=== PATIENT | male | born 1950 | race Caucasian/White ===

== ENCOUNTER 2020-05-14 19:48 | Inpatient (IN) | payer MEDICARE, OTHER ==
[~2020-05-14] VITALS: Ht 188 cm; Wt 109.6 kg
[2020-05-14] MEDS ORDERED: SODIUM CHLORIDE 0.9% 1,000 ML IV ONE (20:45)
[2020-05-14] MEDS ORDERED: PANTOPRAZOLE 40 MG/10 ML VIAL INJ IV ONE (20:45)
[2020-05-14 21:27] LABS: Hemoglobin 16.3 g/dL (13.5-17.5); Mean Corpuscular Hgb Conc. 34.7 g/dL (32.0-36.0); Mean Corpuscular Volume 97.8 fL (80.0-100.0); Red Cell Distribution Width 15.6 % (11.8-14.3)
[2020-05-14 21:31] LABS: Basophils % (manual) 0 (0.0-2.0); Blast Cells 0; Eosinophils % (manual) 0 (0-7); Metamyelocytes % 0; Promyelocytes % 0; Reactive Lymphocytes 0
[2020-05-14 21:32] LABS: INR 1.11 (0.9-1.15)
[2020-05-14 21:36] LABS: Albumin 1.7 g/dL (3.4-5.0); Potassium 3.6 mmol/L (3.5-5.1)
[2020-05-14 21:39] LABS: BUN/Creatinine Ratio 32.4; Total Protein 6.8 g/dL (6.4-8.2)
[2020-05-14 21:49] LABS: Lipase 187 U/L (73-393); Magnesium 2.9 mg/dL (1.6-2.6)
[2020-05-14 21:52] LABS: Band Neutrophils % (manual) 44; Lymphocytes % (manual) 3 (10.0-50.0); Monocytes % (manual) 3 (0-12); Myelocytes % 2
[2020-05-14] MEDS ORDERED: ONDANSETRON HCL 4 MG/2 ML VIAL IV ONE (22:00)
[2020-05-14] MEDS ORDERED: fentaNYL CITRATE 100 MCG/2 ML VL IV ONE (22:00)
[2020-05-14] MEDS ORDERED: PIPERACILLIN-TAZOB 3.375GM 100 ML IV ONE (22:30)
[2020-05-15] VITALS (28 sets, daily range): BP systolic 68–108; BP diastolic 34–74
[2020-05-15] MEDS ORDERED: POTASSIUM CHLORIDE 20 MEQ in D5W/SOD CHL 0.45% 1,000 ML IV ONE ×2
[2020-05-15] MEDS ORDERED: LIDOCAINE VISCOUS 2% 15ML UD PO ONE (00:15)
[2020-05-15] MEDS ORDERED: ONDANSETRON HCL 4 MG/2 ML VIAL IV PRN ×2 (00:45→17:00)
[2020-05-15] MEDS ORDERED: MORPHINE SULFATE 4 MG/ML SYR/VIAL IV PRN (00:45)
[2020-05-15] MEDS ORDERED: NITROGLYCERIN 0.4 MG SL TAB SL PRN (00:45)
[2020-05-15] MEDS ORDERED: MORPHINE SULFATE INJECTION 2 MG/ML SYRG IV PRN (00:45)
[2020-05-15] MEDS ORDERED: D5W/SOD CHL 0.45%/KCL 20MEQ 1,000 ML IV ONE (01:00)
[2020-05-15] MEDS: D5W/SOD CHL 0.45%/KCL 20MEQ 1,000 ML IV SCH ×2 (01:24→11:55)
[2020-05-15] MEDS: metroNIDAZOLE 500MG/100ML 100 ML IV SCH ×3 (01:24→23:43)
[2020-05-15] MEDS: PANTOPRAZOLE 40 MG/10 ML VIAL INJ IV SCH ×3 (01:25→23:43)
[2020-05-15 04:02] LABS: Urine Amorphous Crystal FEW /hpf (None Seen); Urine Bacteria FEW /hpf (None Seen); Urine Blood Negative /uL (Negative); Urine Hyaline Cast FEW /lpf (0 - 2); Urine Specific Gravity 1.017 (1.001-1.035); Urine WBC 16 /hpf (0 - 3)
[2020-05-15] MEDS: PIPERACILLIN-TAZOB 3.375GM 100 ML IV SCH ×4 (06:31→18:13)
[2020-05-15] MEDS ORDERED: PANTOPRAZOLE 40 MG/10 ML VIAL INJ IV SCH (10:00)
[2020-05-15] MEDS ORDERED: fentaNYL CITRATE 100 MCG/2 ML VL ONE (13:04)
[2020-05-15] MEDS ORDERED: MIDAZOLAM HCL 2MG/2ML 2ml VIAL (1mg/ml) ONE (13:05)
[2020-05-15] MEDS ORDERED: ONDANSETRON HCL 4 MG/2 ML VIAL IV ONE (13:05)
[2020-05-15] MEDS ORDERED: ROCURONIUM 10MG/ML 10ML VIAL IV ONE (13:05)
[2020-05-15] MEDS ORDERED: LIDOCAINE 2% (LOCAL ANESTH.) PF 5ml SDV ONE (13:10)
[2020-05-15] MEDS ORDERED: PROPOFOL 10 MG/ML 20 ML IV ONE (13:10)
[2020-05-15] MEDS ORDERED: HYDROmorphone HCL 2 MG/ML VL ONE (14:06)
[2020-05-15] MEDS ORDERED: POVIDONE IODINE 10 % TOPICAL OINT 30GM TOP ONE (15:18)
[2020-05-15] MEDS ORDERED: PHENYLEPHRINE HCL 10 MG/ML VL ONE (15:29)
[2020-05-15] MEDS ORDERED: MIDAZOLAM DRIP 50 mg/50mL 50 ML IV ONE (16:04)
[2020-05-15] MEDS ORDERED: HYDROmorphone HCL 2 MG/ML VL IV PRN (17:00)
[2020-05-15] MEDS: SODIUM CHLORIDE 0.9% 1,000 ML IV SCH (19:22)
[2020-05-15] MEDS: PHENYLEPHRINE IV 250 ML IV SCH ×2 (19:24→21:13)
[2020-05-15] MEDS: MIDAZOLAM DRIP 50 mg/50mL 50 ML IV SCH (19:26)
[2020-05-15] MEDS ORDERED: ALBUMIN 5% 250 ML IV ONE ×2 (21:15)
[2020-05-15 21:45] LABS: Hematocrit 45.7 % (41.0-53.0); Hemoglobin 15.5 g/dL (13.5-17.5)
[2020-05-16] VITALS (102 sets, daily range): BP systolic 65–133; BP diastolic 46–86
[2020-05-16] MEDS: PIPERACILLIN-TAZOB 3.375GM 100 ML IV SCH ×4 (01:12→17:47)
[2020-05-16] MEDS: PHENYLEPHRINE IV 250 ML IV SCH ×6 (01:12→18:01)
[2020-05-16 01:43] LABS: INR 1.05 (0.9-1.15); Partial Thromboplastin Time 33.6 sec (23.0-31.2)
[2020-05-16] MEDS: SODIUM CHLORIDE 0.9% 1,000 ML IV SCH ×4 (05:04→21:39)
[2020-05-16] MEDS: metroNIDAZOLE 500MG/100ML 100 ML IV SCH ×3 (05:04→21:31)
[2020-05-16] MEDS: MIDAZOLAM DRIP 50 mg/50mL 50 ML IV SCH ×3 (05:06→21:33)
[2020-05-16 07:51] LABS: Alanine Aminotransferase 28 U/L (16-61); Albumin 1.5 g/dL (3.4-5.0); Anion Gap 10 (5-15); Blood Urea Nitrogen 53 mg/dL (7-18); Calcium 6.8 mg/dL (8.5-10.1); Carbon Dioxide 21 mmol/L (21-32); Chloride 108 mmol/L (98-107); Glucose 162 mg/dL (74-106); Magnesium 2.6 mg/dL (1.6-2.6); Potassium 3.4 mmol/L (3.5-5.1); Sodium 139 mmol/L (136-145)
[2020-05-16 07:56] LABS: Alkaline Phosphatase 55 U/L (45-117); Aspartate Aminotransferase 51 U/L (15-37); BUN/Creatinine Ratio 34.9; Bilirubin, Total 0.7 mg/dL (0.2-1.0); Cholesterol < 50 mg/dL (< 200); GFR African American 59 mL/min; GFR Non-African American 49 mL/min; HDL Cholesterol 10 mg/dL (40-59); LDL Cholesterol 10 mg/dL (< 100); Total Protein 5.2 g/dL (6.4-8.2); Triglycerides 133 mg/dL (< 150)
[2020-05-16 07:58] LABS: Hematocrit 40.5 % (41.0-53.0); Hemoglobin 13.6 g/dL (13.5-17.5); Mean Corpuscular Hemoglobin 33.3 pg (28.0-32.0); Mean Corpuscular Hgb Conc. 33.7 g/dL (32.0-36.0); Mean Corpuscular Volume 99.1 fL (80.0-100.0); Red Blood Cells 4.09 10^6/uL (4.5-5.90); Red Cell Distribution Width 15.7 % (11.8-14.3); White Blood Cell 12.9 10^3/uL (4.4-10.8)
[2020-05-16 08:03] LABS: Basophils % (manual) 0 (0.0-2.0); Blast Cells 0; Eosinophils % (manual) 0 (0-7); Metamyelocytes % 0; Myelocytes % 0; Promyelocytes % 0; Reactive Lymphocytes 0
[2020-05-16 08:58] LABS: Band Neutrophils % (manual) 11; Lymphocytes % (manual) 4 (10.0-50.0); Monocytes % (manual) 4 (0-12)
[2020-05-16] MEDS: PANTOPRAZOLE 40 MG/10 ML VIAL INJ IV SCH ×2 (09:42→21:32)
[2020-05-16] MEDS ORDERED: ACETAMINOPHEN 500 MG TAB PO PRN (11:15)
[2020-05-16] MEDS ORDERED: POTASSIUM CHL 20MEQ/100ML 100 ML IV ONE (11:30)
[2020-05-16] MEDS: NOREPINEPHRINE 8 MG/250ML KIT 250 ML IV SCH (11:44)
[2020-05-16] MEDS: fentaNYL Drip 2500mCg/250mlNS 250 ML IV SCH (16:02)
[2020-05-17] VITALS (106 sets, daily range): BP systolic 78–162; BP diastolic 41–125
[2020-05-17] MEDS: PIPERACILLIN-TAZOB 3.375GM 100 ML IV SCH ×5 (00:28→23:30)
[2020-05-17] MEDS: PHENYLEPHRINE IV 250 ML IV SCH (02:25)
[2020-05-17] MEDS: metroNIDAZOLE 500MG/100ML 100 ML IV SCH ×3 (05:23→21:16)
[2020-05-17] MEDS: SODIUM CHLORIDE 0.9% 1,000 ML IV SCH (05:23)
[2020-05-17 05:59] LABS: Hematocrit 37.8 % (41.0-53.0); Hemoglobin 12.8 g/dL (13.5-17.5); Mean Corpuscular Hemoglobin 33.7 pg (28.0-32.0); Mean Corpuscular Hgb Conc. 33.9 g/dL (32.0-36.0); Mean Corpuscular Volume 99.6 fL (80.0-100.0); Red Blood Cells 3.79 10^6/uL (4.5-5.90); Red Cell Distribution Width 15.9 % (11.8-14.3); White Blood Cell 10.9 10^3/uL (4.4-10.8)
[2020-05-17] MEDS: MIDAZOLAM DRIP 50 mg/50mL 50 ML IV SCH ×2 (06:10→16:34)
[2020-05-17 06:22] LABS: Albumin 1.2 g/dL (3.4-5.0); Calcium 6.9 mg/dL (8.5-10.1); Potassium 3.2 mmol/L (3.5-5.1)
[2020-05-17 06:24] LABS: BUN/Creatinine Ratio 36.4
[2020-05-17 06:27] LABS: Bilirubin, Total 0.5 mg/dL (0.2-1.0)
[2020-05-17 06:34] LABS: Basophils % (manual) 0 (0.0-2.0); Blast Cells 0; Metamyelocytes % 0; Myelocytes % 0; Promyelocytes % 0; Reactive Lymphocytes 0
[2020-05-17 08:55] LABS: Band Neutrophils % (manual) 3; Eosinophils % (manual) 1 (0-7); Lymphocytes % (manual) 12 (10.0-50.0); Monocytes % (manual) 3 (0-12)
[2020-05-17] MEDS ORDERED: TPN PER PHARMACY 0 ML IV SCH (10:15)
[2020-05-17 11:06] LABS: Magnesium 2.9 mg/dL (1.6-2.6); Phosphorus 2.8 mg/dL (2.5-4.90)
[2020-05-17 11:10] LABS: Pre Albumin < 3.0 mg/dL (20.0-40.0)
[2020-05-17] MEDS: NOREPINEPHRINE 8 MG/250ML KIT 250 ML IV SCH (11:15)
[2020-05-17] MEDS: PANTOPRAZOLE 40 MG/10 ML VIAL INJ IV SCH ×2 (11:50→21:16)
[2020-05-17] MEDS: POTASSIUM CHL 20MEQ/100ML 100 ML IV SCH ×2 (12:00→14:33)
[2020-05-17] MEDS ORDERED: DEXTROSE (50%) 50ML SYRG IV SCH (12:09)
[2020-05-17] MEDS ORDERED: SODIUM CHLORIDE 0.9% 1,000 ML IV SCH ×2 (12:30→20:00)
[2020-05-17] MEDS: ALBUMIN 25% 100 ML IV SCH ×2 (14:33→19:52)
[2020-05-17] MEDS: fentaNYL Drip 2500mCg/250mlNS 250 ML IV SCH (15:30)
[2020-05-17] MEDS: SODIUM CHLOR 0.9% PF (SALINE LOCK) 10ML VIAL/SYR IV SCH (20:00)
[2020-05-17] MEDS ORDERED: TPN PER PHARMACY IV NR ×9 (20:00)
[2020-05-18] VITALS (101 sets, daily range): BP systolic 77–162; BP diastolic 49–100
[2020-05-18] MEDS: PHENYLEPHRINE IV 250 ML IV SCH ×3 (00:45→20:00)
[2020-05-18] MEDS: ALBUMIN 25% 100 ML IV SCH (02:12)
[2020-05-18] MEDS: ACCU-CHEK COMFORT CURVE STRIP VI SCH ×4 (05:10→17:57)
[2020-05-18] MEDS: metroNIDAZOLE 500MG/100ML 100 ML IV SCH (05:10)
[2020-05-18] MEDS: InsuLIN REG 1unit/0.01ml Soln (100units/ml) SC SCH ×4 (05:11→17:57)
[2020-05-18] MEDS: PIPERACILLIN-TAZOB 3.375GM 100 ML IV SCH ×4 (05:17→23:47)
[2020-05-18 05:55] LABS: Potassium 3.3 mmol/L (3.5-5.1)
[2020-05-18 06:01] LABS: Albumin 1.9 g/dL (3.4-5.0); BUN/Creatinine Ratio 30.9; Bilirubin, Total 0.7 mg/dL (0.2-1.0); Calcium 7.1 mg/dL (8.5-10.1); Magnesium 2.9 mg/dL (1.6-2.6); Phosphorus 2.1 mg/dL (2.5-4.90); Total Protein 5.2 g/dL (6.4-8.2)
[2020-05-18 06:16] LABS: Hemoglobin 11.5 g/dL (13.5-17.5)
[2020-05-18 06:17] LABS: Hematocrit 35.2 % (41.0-53.0); Mean Corpuscular Hemoglobin 33.4 pg (28.0-32.0); Mean Corpuscular Hgb Conc. 32.7 g/dL (32.0-36.0); Mean Corpuscular Volume 102.3 fL (80.0-100.0); Red Blood Cells 3.44 10^6/uL (4.5-5.90); Red Cell Distribution Width 16.6 % (11.8-14.3); White Blood Cell 9.2 10^3/uL (4.4-10.8)
[2020-05-18 06:23] LABS: Basophils % (manual) 0 (0.0-2.0); Blast Cells 0; Metamyelocytes % 0; Myelocytes % 0; Promyelocytes % 0; Reactive Lymphocytes 0
[2020-05-18 07:22] LABS: Band Neutrophils % (manual) 7; Eosinophils % (manual) 1 (0-7); Lymphocytes % (manual) 5 (10.0-50.0); Monocytes % (manual) 6 (0-12)
[2020-05-18] MEDS: SODIUM CHLOR 0.9% PF (SALINE LOCK) 10ML VIAL/SYR IV SCH ×2 (09:35→23:46)
[2020-05-18] MEDS: PANTOPRAZOLE 40 MG/10 ML VIAL INJ IV SCH ×2 (09:35→20:14)
[2020-05-18] MEDS ORDERED: POTASSIUM CHLORIDE 20 MEQ, LIDOCAINE 1% (LOCAL ANESTH.) 2 ML in SODIUM CHL 0.9% 100 ML IV ONE (10:45)
[2020-05-18] MEDS ORDERED: D5W 5% 1,000 ML IV ONE (10:45)
[2020-05-18] MEDS: NOREPINEPHRINE 8 MG/250ML KIT 250 ML IV SCH (11:15)
[2020-05-18] MEDS ORDERED: POTASSIUM PHOSPHATE 26.4 MEQ in SODIUM CHL 0.9% 100 ML IV ONE (12:45)
[2020-05-18] MEDS: fentaNYL Drip 2500mCg/250mlNS 250 ML IV SCH (15:30)
[2020-05-18] MEDS ORDERED: TPN PER PHARMACY IV NR ×10 (20:00)
[2020-05-19] VITALS (78 sets, daily range): BP systolic 87–176; BP diastolic 58–112
[2020-05-19] MEDS: PHENYLEPHRINE IV 250 ML IV SCH ×3 (01:54→20:43)
[2020-05-19] MEDS: fentaNYL Drip 2500mCg/250mlNS 250 ML IV SCH (04:30)
[2020-05-19] MEDS: ACCU-CHEK COMFORT CURVE STRIP VI SCH ×4 (05:28→18:36)
[2020-05-19] MEDS: InsuLIN REG 1unit/0.01ml Soln (100units/ml) SC SCH ×4 (05:28→18:35)
[2020-05-19] MEDS: PIPERACILLIN-TAZOB 3.375GM 100 ML IV SCH ×3 (05:28→17:21)
[2020-05-19 05:56] LABS: Red Cell Distribution Width 16.8 % (11.8-14.3)
[2020-05-19 05:58] LABS: Hematocrit 34.9 % (41.0-53.0); Hemoglobin 12.2 g/dL (13.5-17.5); Mean Corpuscular Hemoglobin 36.2 pg (28.0-32.0); Mean Corpuscular Hgb Conc. 34.8 g/dL (32.0-36.0); Red Blood Cells 3.36 10^6/uL (4.5-5.90)
[2020-05-19 06:15] LABS: Basophils % (manual) 0 (0.0-2.0); Blast Cells 0; Myelocytes % 0; Promyelocytes % 0; Reactive Lymphocytes 0
[2020-05-19 06:38] LABS: Albumin 1.6 g/dL (3.4-5.0); Calcium 6.8 mg/dL (8.5-10.1); Magnesium 2.3 mg/dL (1.6-2.6); Potassium 3.7 mmol/L (3.5-5.1)
[2020-05-19 06:39] LABS: Band Neutrophils % (manual) 25; Eosinophils % (manual) 1 (0-7); Lymphocytes % (manual) 2 (10.0-50.0); Metamyelocytes % 1; Monocytes % (manual) 3 (0-12)
[2020-05-19 06:41] LABS: BUN/Creatinine Ratio 29.9; Bilirubin, Total 0.7 mg/dL (0.2-1.0); Phosphorus 2.2 mg/dL (2.5-4.90); Total Protein 5.3 g/dL (6.4-8.2)
[2020-05-19] MEDS ORDERED: POTASSIUM PHOSPHATE 26.4 MEQ in SODIUM CHL 0.9% 100 ML IV ONE (09:00)
[2020-05-19] MEDS: ENOXAPARIN SOD 30 MG/0.3 ML SYRINGE SC SCH (10:00)
[2020-05-19] MEDS: NOREPINEPHRINE 8 MG/250ML KIT 250 ML IV SCH (11:15)
[2020-05-19] MEDS: PANTOPRAZOLE 40 MG/10 ML VIAL INJ IV SCH ×2 (12:30→20:43)
[2020-05-19] MEDS: SODIUM CHLOR 0.9% PF (SALINE LOCK) 10ML VIAL/SYR IV SCH ×2 (12:31→20:44)
[2020-05-19] MEDS: LINEZOLID 600MG/300ML 300 ML IV SCH ×2 (12:31→20:45)
[2020-05-19] MEDS: MIDAZOLAM DRIP 50 mg/50mL 50 ML IV SCH (13:56)
[2020-05-19] MEDS ORDERED: TPN PER PHARMACY IV NR ×10 (20:00)
[2020-05-20] VITALS (23 sets, daily range): BP systolic 127–148; BP diastolic 72–99
[2020-05-20] MEDS: PIPERACILLIN-TAZOB 3.375GM 100 ML IV SCH ×4 (00:06→17:47)
[2020-05-20] MEDS: PHENYLEPHRINE IV 250 ML IV SCH (00:07)
[2020-05-20] MEDS: InsuLIN REG 1unit/0.01ml Soln (100units/ml) SC SCH ×4 (00:07→17:46)
[2020-05-20] MEDS: ACCU-CHEK COMFORT CURVE STRIP VI SCH ×4 (00:07→17:46)
[2020-05-20 06:25] LABS: Albumin 1.4 g/dL (3.4-5.0); BUN/Creatinine Ratio 25.9; Calcium 6.9 mg/dL (8.5-10.1); Magnesium 1.9 mg/dL (1.6-2.6); Total Protein 5.2 g/dL (6.4-8.2)
[2020-05-20 06:31] LABS: Phosphorus 2.5 mg/dL (2.5-4.90)
[2020-05-20] MEDS: NOREPINEPHRINE 8 MG/250ML KIT 250 ML IV SCH (08:49)
[2020-05-20] MEDS: PANTOPRAZOLE 40 MG/10 ML VIAL INJ IV SCH ×2 (09:00→21:33)
[2020-05-20] MEDS: ENOXAPARIN SOD 30 MG/0.3 ML SYRINGE SC SCH (11:30)
[2020-05-20] MEDS: SODIUM CHLOR 0.9% PF (SALINE LOCK) 10ML VIAL/SYR IV SCH ×2 (11:30→21:33)
[2020-05-20] MEDS: LINEZOLID 600MG/300ML 300 ML IV SCH ×2 (11:30→21:34)
[2020-05-20] MEDS ORDERED: TPN PER PHARMACY IV NR ×10 (20:00)
[2020-05-21] MEDS: ACCU-CHEK COMFORT CURVE STRIP VI SCH ×3 (00:27→11:29)
[2020-05-21] MEDS: PIPERACILLIN-TAZOB 3.375GM 100 ML IV SCH ×3 (00:29→11:28)
[2020-05-21 05:21] VITALS: BP 128/69
[2020-05-21] MEDS: InsuLIN REG 1unit/0.01ml Soln (100units/ml) SC SCH ×3 (05:34→11:29)
[2020-05-21 07:59] VITALS: BP 137/71
[2020-05-21 08:48] LABS: Albumin 1.3 g/dL (3.4-5.0)
[2020-05-21 08:54] LABS: BUN/Creatinine Ratio 24.5; Bilirubin, Total 1.3 mg/dL (0.2-1.0); Calcium 6.5 mg/dL (8.5-10.1); Phosphorus 2.4 mg/dL (2.5-4.90); Total Protein 5.4 g/dL (6.4-8.2)
[2020-05-21 09:03] LABS: Potassium 2.9 mmol/L (3.5-5.1)
[2020-05-21] MEDS: ENOXAPARIN SOD 30 MG/0.3 ML SYRINGE SC SCH (10:00)
[2020-05-21] MEDS: PANTOPRAZOLE 40 MG/10 ML VIAL INJ IV SCH ×2 (10:00→20:59)
[2020-05-21] MEDS: LINEZOLID 600MG/300ML 300 ML IV SCH (10:20)
[2020-05-21] MEDS: POTASSIUM CHL 20MEQ/100ML 100 ML IV SCH ×2 (10:20→11:28)
[2020-05-21] MEDS: SODIUM CHLOR 0.9% PF (SALINE LOCK) 10ML VIAL/SYR IV SCH ×2 (10:21→20:59)
[2020-05-21] MEDS ORDERED: POTASSIUM CHL 20MEQ/100ML 100 ML IV SCH (10:30)
[2020-05-21 12:30] VITALS: BP 137/72
[2020-05-21] MEDS ORDERED: POTASSIUM PHOSPHATE 22 MEQ in SODIUM CHL 0.9% 100 ML IV ONE (13:00)
[2020-05-21 16:51] VITALS: BP 125/70
[2020-05-21] MEDS: AMPICILLIN INJ 1 GM in SODIUM CHL 0.9% 50 ML IV SCH (18:23)
[2020-05-21] MEDS ORDERED: TPN PER PHARMACY IV NR ×11 (20:00)
[2020-05-21 22:00] VITALS: BP 125/72
[2020-05-22] MEDS: AMPICILLIN INJ 1 GM in SODIUM CHL 0.9% 50 ML IV SCH ×4 (01:06→17:59)
[2020-05-22 05:00] VITALS: BP 135/68
[2020-05-22 07:15] LABS: Basophils # (auto) 0 10 ^3/uL (0-0.2); Eosinophils # (auto) 0 10 ^3/uL (0-0.8); Lymphocytes # (auto) 0.6 10 ^3/uL (0.4-5.4); Monocytes # (auto) 0.6 10 ^3/uL (0-1.3)
[2020-05-22 07:17] LABS: Basophils % (auto) 0.3 % (0.0-2.0); Eosinophils % (auto) 0.5 % (0.0-7.0); Hematocrit 34.4 % (41.0-53.0); Lymphocytes % (auto) 7.3 % (10.0-50.0); Mean Corpuscular Hemoglobin 35.6 pg (28.0-32.0); Mean Corpuscular Hgb Conc. 34.8 g/dL (32.0-36.0); Mean Corpuscular Volume 102.5 fL (80.0-100.0); Monocytes % (auto) 8.1 % (0.0-12.0); Neutrophils # (auto) 6.7 10 ^3/uL (1.6-8.6); Neutrophils % (auto) 83.8 % (37.0-80.0); Nucleated Red Blood Cells % 0.1 %; Red Blood Cells 3.36 10^6/uL (4.5-5.90); Red Cell Distribution Width 15.5 % (11.8-14.3)
[2020-05-22 09:00] VITALS: BP 125/67
[2020-05-22] MEDS: PANTOPRAZOLE 40 MG/10 ML VIAL INJ IV SCH ×2 (10:00→21:10)
[2020-05-22] MEDS: levoFLOXacin 750MG 150 ML IV SCH ×2 (10:00→10:54)
[2020-05-22] MEDS: ENOXAPARIN SOD 30 MG/0.3 ML SYRINGE SC SCH (10:00)
[2020-05-22] MEDS: SODIUM CHLOR 0.9% PF (SALINE LOCK) 10ML VIAL/SYR IV SCH ×2 (10:01→21:10)
[2020-05-22] MEDS ORDERED: POTASSIUM CHL 20 Meq TABLET PO ONE (12:00)
[2020-05-22 13:00] VITALS: BP 121/64
[2020-05-22] MEDS ORDERED: ERGOCALCIFEROL 50,000 UNIT(1.25MG) CAP PO SCH (13:00)
[2020-05-22 17:00] VITALS: BP 124/70
[2020-05-22 21:53] VITALS: BP 126/66
[2020-05-23] MEDS: AMPICILLIN INJ 1 GM in SODIUM CHL 0.9% 50 ML IV SCH ×5 (00:11→23:03)
[2020-05-23 05:00] VITALS: BP 122/70
[2020-05-23 07:26] LABS: Potassium 3.3 mmol/L (3.5-5.1)
[2020-05-23 07:36] LABS: Bilirubin, Total 1.2 mg/dL (0.2-1.0); Magnesium 2.1 mg/dL (1.6-2.6)
[2020-05-23 07:38] LABS: Basophils # (auto) 0 10 ^3/uL (0-0.2); Basophils % (auto) 0.4 % (0.0-2.0); Hemoglobin 11.9 g/dL (13.5-17.5)
[2020-05-23 07:40] LABS: Eosinophils # (auto) 0.1 10 ^3/uL (0-0.8); Eosinophils % (auto) 0.6 % (0.0-7.0); Hematocrit 34.4 % (41.0-53.0); Lymphocytes # (auto) 0.7 10 ^3/uL (0.4-5.4); Lymphocytes % (auto) 9.2 % (10.0-50.0); Mean Corpuscular Hemoglobin 35.9 pg (28.0-32.0); Mean Corpuscular Hgb Conc. 34.6 g/dL (32.0-36.0); Mean Corpuscular Volume 103.7 fL (80.0-100.0); Monocytes # (auto) 0.5 10 ^3/uL (0-1.3); Monocytes % (auto) 6.6 % (0.0-12.0); Neutrophils # (auto) 6.8 10 ^3/uL (1.6-8.6); Neutrophils % (auto) 83.2 % (37.0-80.0); Red Blood Cells 3.32 10^6/uL (4.5-5.90); Red Cell Distribution Width 15.7 % (11.8-14.3); White Blood Cell 8.1 10^3/uL (4.4-10.8)
[2020-05-23 09:00] VITALS: BP 130/68
[2020-05-23] MEDS: PANTOPRAZOLE 40 MG/10 ML VIAL INJ IV SCH ×2 (09:31→21:17)
[2020-05-23] MEDS: levoFLOXacin 750MG 150 ML IV SCH (09:31)
[2020-05-23] MEDS: ENOXAPARIN SOD 30 MG/0.3 ML SYRINGE SC SCH (09:32)
[2020-05-23] MEDS: SODIUM CHLOR 0.9% PF (SALINE LOCK) 10ML VIAL/SYR IV SCH ×2 (09:32→21:17)
[2020-05-23 12:39] VITALS: BP 128/74
[2020-05-23] MEDS ORDERED: POTASSIUM CHL 20 Meq TABLET PO ONE (14:15)
[2020-05-23] MEDS ORDERED: FLORASTOR (S. BOULARDII) 250 MG CAP PO ONE (14:16)
[2020-05-23 16:36] VITALS: BP 126/71
[2020-05-23 22:00] VITALS: BP 125/63
[2020-05-24 05:00] VITALS: BP 135/71
[2020-05-24] MEDS: AMPICILLIN INJ 1 GM in SODIUM CHL 0.9% 50 ML IV SCH ×4 (05:06→23:50)
[2020-05-24 06:55] LABS: Potassium 3.5 mmol/L (3.5-5.1)
[2020-05-24 08:00] VITALS: BP 138/72
[2020-05-24] MEDS: FLORASTOR (S. BOULARDII) 250 MG CAP PO SCH (09:14)
[2020-05-24] MEDS: ENOXAPARIN SOD 30 MG/0.3 ML SYRINGE SC SCH (09:14)
[2020-05-24] MEDS: levoFLOXacin 750MG 150 ML IV SCH (09:15)
[2020-05-24] MEDS: SODIUM CHLOR 0.9% PF (SALINE LOCK) 10ML VIAL/SYR IV SCH ×2 (09:18→23:50)
[2020-05-24] MEDS: PANTOPRAZOLE 40 MG TAB PO SCH (09:27)
[2020-05-24 12:15] VITALS: BP 123/69
[2020-05-24 16:00] VITALS: BP 128/69
[2020-05-24 21:26] VITALS: BP 114/65
[2020-05-25 04:55] VITALS: BP 120/64
[2020-05-25] MEDS: AMPICILLIN INJ 1 GM in SODIUM CHL 0.9% 50 ML IV SCH (05:41)
[2020-05-25 05:58] LABS: Hematocrit 27.8 % (41.0-53.0); Hemoglobin 11.3 g/dL (13.5-17.5)
[2020-05-25 06:26] LABS: Potassium 3.3 mmol/L (3.5-5.1)
[2020-05-25 08:46] VITALS: BP 132/67
[2020-05-25] MEDS: FLORASTOR (S. BOULARDII) 250 MG CAP PO SCH (09:16)
[2020-05-25] MEDS: PANTOPRAZOLE 40 MG TAB PO SCH (09:16)
[2020-05-25] MEDS: levoFLOXacin 750MG 150 ML IV SCH (09:16)
[2020-05-25] MEDS: SODIUM CHLOR 0.9% PF (SALINE LOCK) 10ML VIAL/SYR IV SCH ×2 (09:16→22:25)
[2020-05-25] MEDS: ENOXAPARIN SOD 30 MG/0.3 ML SYRINGE SC SCH (09:17)
[2020-05-25] MEDS ORDERED: AMPI500C8 PO (09:26)
[2020-05-25] MEDS ORDERED: SACC250C PO (09:30)
[2020-05-25] MEDS ORDERED: LEVO500T31 PO (09:30)
[2020-05-25] MEDS ORDERED: PANT40TA2 PO (09:30)
[2020-05-25] MEDS ORDERED: CHOL20007 PO (09:30)
[2020-05-25] MEDS ORDERED: FLORASTOR (S. BOULARDII) 250 MG CAP PO SCH (09:30)
[2020-05-25] MEDS ORDERED: POTASSIUM CHL 20 Meq TABLET PO ONE (09:30)
[2020-05-25] MEDS: AMPICILLIN 250 MG/5ML ORAL SUSP 200ML PO SCH ×2 (12:00→20:31)
[2020-05-25] MEDS: CHOLECALCIFEROL (VITD3) 2,000 UNIT CAP/TAB PO SCH (12:09)
[2020-05-25 13:00] VITALS: BP 123/60
[2020-05-25 16:47] VITALS: BP 123/62
[2020-05-25 22:00] VITALS: BP 120/69
[2020-05-26 05:00] VITALS: BP 128/68
[2020-05-26] MEDS: AMPICILLIN 250 MG/5ML ORAL SUSP 200ML PO SCH ×3 (06:00→12:00)
[2020-05-26 09:00] VITALS: BP 114/65
[2020-05-26] MEDS: CHOLECALCIFEROL (VITD3) 2,000 UNIT CAP/TAB PO SCH (09:48)
[2020-05-26] MEDS: PANTOPRAZOLE 40 MG TAB PO SCH (09:48)
[2020-05-26] MEDS: ENOXAPARIN SOD 30 MG/0.3 ML SYRINGE SC SCH (09:48)
[2020-05-26] MEDS: SODIUM CHLOR 0.9% PF (SALINE LOCK) 10ML VIAL/SYR IV SCH (09:50)
[2020-05-26] MEDS ORDERED: levoFLOXacin 500 MG TAB PO SCH (10:00)
[2020-05-26] MEDS ORDERED: FLORASTOR (S. BOULARDII) 250 MG CAP PO SCH (10:00)
[2020-05-26 13:00] VITALS: BP 114/60
[2020-05-26] MEDS ORDERED: AMOXICILLIN TRIHYDRATE 250 MG CAP PO SCH (14:00)
[2020-05-26 17:00] VITALS: BP 123/71
== END 2020-05-26 19:20 | DRG 853 ==
LOC: ER 19:51 → TELE 05-15 00:41 → TELE-WESTW 05-15 03:29 → DOU IN ICU 05-15 18:46 → TELE-WESTW 05-20 11:20 → WEST WING 05-20 18:44
PROVIDERS: ADMIT Nurse Practitioner; ATTEND Internal Medicine
PROC: 0DQ80ZZ Repair Small Intestine, Open Approach (ICD-10-PCS; 2020-05-15)
PROC: 0YQ50ZZ Repair Right Inguinal Region, Open Approach (ICD-10-PCS; 2020-05-15)
PROC: 0BH17EZ Insertion of Endotracheal Airway into Trachea, Via Natural or Artificial Opening (ICD-10-PCS; 2020-05-15)
PROC: 0D9670Z Drainage of Stomach with Drainage Device, Via Natural or Artificial Opening (ICD-10-PCS; 2020-05-15)
PROC: 0DNW0ZZ Release Peritoneum, Open Approach (ICD-10-PCS; 2020-05-15)
PROC: 5A1945Z Respiratory Ventilation, 24-96 Consecutive Hours (ICD-10-PCS; principal; 2020-05-15 13:05)
PROC: 03HY32Z Insertion of Monitoring Device into Upper Artery, Percutaneous Approach (ICD-10-PCS; 2020-05-16)
PROC: 02HV33Z Insertion of Infusion Device into Superior Vena Cava, Percutaneous Approach (ICD-10-PCS; 2020-05-17)
PROC: B548ZZA Ultrasonography of Superior Vena Cava, Guidance (ICD-10-PCS; 2020-05-17)
PROC: 0BP1XDZ Removal of Intraluminal Device from Trachea, External Approach (ICD-10-PCS; 2020-05-19)
PROC: 0J980ZZ Drainage of Abdomen Subcutaneous Tissue and Fascia, Open Approach (ICD-10-PCS; 2020-05-23)
DX: A41.9 Sepsis, unspecified organism (principal); K63.1 Perforation of intestine (nontraumatic); J96.00 Acute respiratory failure, unspecified whether with hypoxia or hypercapnia; N17.0 Acute kidney failure with tubular necrosis; R65.21 Severe sepsis with septic shock; K65.8 Other peritonitis; E43 Unspecified severe protein-calorie malnutrition; K40.30 Unilateral inguinal hernia, with obstruction, without gangrene, not specified as recurrent; Z99.11 Dependence on respirator [ventilator] status; E87.0 Hyperosmolality and hypernatremia; I82.612 Acute embolism and thrombosis of superficial veins of left upper extremity; K66.8 Other specified disorders of peritoneum; M10.9 Gout, unspecified; B96.20 Unspecified Escherichia coli [E. coli] as the cause of diseases classified elsewhere; F17.210 Nicotine dependence, cigarettes, uncomplicated; B35.1 Tinea unguium; Z20.822 Contact with and (suspected) exposure to COVID-19; E88.09 Other disorders of plasma-protein metabolism, not elsewhere classified; E87.6 Hypokalemia; N28.1 Cyst of kidney, acquired; E55.9 Vitamin D deficiency, unspecified; K66.0 Peritoneal adhesions (postprocedural) (postinfection); L60.2 Onychogryphosis; L84 Corns and callosities; R73.03 Prediabetes; J44.9 Chronic obstructive pulmonary disease, unspecified; E66.9 Obesity, unspecified; D75.89 Other specified diseases of blood and blood-forming organs; Z68.31 Body mass index [BMI] 31.0-31.9, adult
CPT/HCPCS: 36415; 36569; 36600; 71045; 74018; 74176; 80053; 80061; 81001; 82040; 82247; 82306; 82805; 82962; 83036; 83605; 83690; 83735; 83880; 84100; 84132; 84443; 84484; 85007; 85014; 85018; 85025; 85027; 85610; 85730; 86850; 86900; 86901; 87040; 87070; 87075; 87076; 87077; 87081; 87086; 87186; 87205; 87426; 87493; 88302; 93005; 93306; 93970; 94002; 94003; 96361; 96365; 96366; 96375; 97163; 97530; C9113; G0378; J1815; J1956; J2001; J2250; J2405; J2543; J2704; J3480; J3490; J7042; J7131; P9047